=== PATIENT | female | born 2000 | race Caucasian/White ===

== ENCOUNTER 2023-06-01 11:52 | Emergency (ER) | payer BC, SELFPAY ==
[2023-06-01 12:05] VITALS: PULSE 96; RESP 22; TEMP 36.6; O2SAT 97; BMI 42.5
[2023-06-01 13:22] LABS: PCR FLU A Negative PCR FLU A (Negative); PCR FLU B Negative PCR FLU B (Negative); PCR RSV Negative PCR RSV (Negative)
--- NOTE | 2023-06-01 13:33 | ED_ITS ---
HPI - General Adult General Chief complaint: Cough Stated complaint: cough, coughed up blood Time Seen by Provider: 06/01/23 13:09 History of Present Illness HPI narrative: This 22-year-old female comes in reporting a cough over the past week or so. She comes in today because there was some specks of blood mixed in with the sputum when she cough today. She is about 18 weeks . She does not report any fevers. She does not have any shortness of breath. Her visit here today is simply because of some specks of blood in the sputum. Related Data Home Medications Medication Instructions Recorded Confirmed aspirin 81 mg tablet,delayed 81 mg PO DAILY 06/01/23 06/01/23 release folic acid 1 mg tablet 1 mg PO DAILY 06/01/23 06/01/23 levothyroxine 100 mcg tablet 100 mcg PO QAM 06/01/23 06/01/23 (Euthyrox) Previous Rx's Medication Instructions Recorded acetaminophen 300 mg-codeine 30 mg 1 tab PO Q6H PRN pain #15 tabs 06/01/23 tablet Allergies Allergy/AdvReac Type Severity Reaction Status Date / Time No Known Drug Allergies Allergy Verified 06/01/23 12:03 Review of Systems 2 Status of ROS: Reports: 10 or more systems reviewed and unremarkable except as noted in History and below Narrative: Constitutional: No fevers, no weight gain or loss. Eyes: No discharge. No vision changes. HENT: No congestion, no sore throat, no ear pain. Cardiovascular: No chest pain, no palpitations. Respiratory: No shortness of breath, no wheezes. She reports a productive cough. Gastrointestinal: No abdominal pain, no vomiting, no diarrhea. Genitourinary: No dysuria, no hematuria. Musculoskeletal: Normal range of motion. Skin: No rashes, no pruritis. Neurological: No dizziness, weakness, sensory change, speech change. Endo/Heme/Allergies: No bruising or bleeding. No polydipsia. Pysch: no suicidality, no anxiety, no insomnia. All other systems reviewed and are negative. PFSH PFSH Social History Smoking Status: Never smoker Non-prescribed substance use: denies use Exam Narrative: Exam Narrative: Constitutional: Well-developed, well-nourished, no acute distress. HEENT: Normocephalic, atraumatic. Neck: Normal range of motion. Nontender. Supple. Heart: Regular. No murmurs. Normal rate. Intact distal pulses. Lungs: Clear to auscultation. No chest discomfort. No wheezes, rhonchi, or rales. Abdomen: Normal bowel sounds. Nontender. No rebound tenderness. Gravid. Genitalia: Deferred. Back: No midline tenderness. Normal range of motion. Extremities: Normal range of motion. No injury. Skin: Intact. No rash. Warm. No erythema or pallor. Neurologic: No altered sensation. No weakness. Alert and oriented. Psychiatric: No suicidality. No anxiety or depression. No insomnia. Nursing notes and vitals signs are reviewed. Const: Vital Signs, click to edit/add: Vital Signs - 24 hr 06/01/23 12:05 Temperature 97.8 F Pulse Rate [Pulse Oximeter] 96 Respiratory Rate 22 Pulse Oximetry 97 Oxygen Delivery Me thod Room Air Course Vital Signs Vital signs: Initial Vital Signs Temperature 97.8 F 06/01/23 12:05 Temperature Source Temporal Artery Scan 06/01/23 12:05 Pulse Rate 96 06/01/23 12:05 Pulse Rhythm Regular 06/01/23 12:05 Respiratory Rate 22 06/01/23 12:05 Pulse Oximetry 97 06/01/23 12:05 Oxygen Delivery Method Room Air 06/01/23 12:05 Vital Signs Temperature 97.8 F 06/01/23 12:05 Pulse Rate 96 06/01/23 12:05 Respiratory Rate 22 06/01/23 12:05 Pulse Oximetry 97 06/01/23 12:05 Oxygen Delivery Method Room Air 06/01/23 12:05 Temperature 97.8 F 06/01/23 12:05 Pulse Rate 96 06/01/23 12:05 Respiratory Rate 22 06/01/23 12:05 Pulse Oximetry 97 06/01/23 12:05 Oxygen Delivery Method Room Air 06/01/23 12:05 Medical Decision Making MDM Narrative Medical decision making narrative: This patient is and comes in with a productive cough that had some blood in the sputum today. She arrives with normal vital signs. Her exam is also normal. I did discuss x-ray imaging and lab options which the patient declined in a process of shared decision making. The blood in her sputum is not worrisome. I did indicate signs or symptoms that would indicate a need for return and re-evaluation. She did receive a prescription for some tablets of Tylenol 3 to be used as needed for additional cough control. Discharge Plan Discharge Clinical Impression: Acute upper respiratory infection Patient Disposition: Home, Self-Care Condition: Stable Additional Instructions: Continue current plans. Use medication as needed and directed for additional cough control. Return if worsening. Prescriptions: New acetaminophen-codeine 300-30 mg tablet 1 tab PO Q6H PRN (Reason: pain) Qty: 15 0RF No Action aspirin 81 mg tablet,delayed release (DR/EC) 81 mg PO DAILY levothyroxine [Euthyrox] 100 mcg tablet 100 mcg PO QAM folic acid 1 mg tablet 1 mg PO DAILY Stand Alone Forms: [employer] Info Instructions
[2023-06-01 13:41] LABS: SARS PCR* Negative SARS-CoV-2 (Negative)
== END 2023-06-01 14:03 | disposition home or self-care (01) ==
LOC: ED 13:57
PROVIDERS: Emergency Provider Emergency Medicine Emergency Medical Services; PCP Family Medicine
DX: J06.9 Acute upper respiratory infection, unspecified (principal)
CPT/HCPCS: 87631; 99283; 99284

== ENCOUNTER 2023-10-12 12:31 | Inpatient (IN) | payer BC, SELFPAY ==
[2023-10-12] VITALS (27 sets, daily range): BP systolic 73–110; BP diastolic 44–73; PULSE 73–104; RESP 14–20; TEMP 36.6–37.3; O2SAT 90–100; BMI 43.8
--- NOTE | 2023-10-12 10:18 | US_ITS ---
Patient: YONIS CR Facility:?[facility] Patient ID:?[id number] Site Patient ID:?[id number]. Site :?[id number] Study:?US-OB Pelvis OB BPP-10/12/2023 10:59:37 AM Ordering Physician:?DENYS SANDHU M.D. Final Report: INDICATION: Right lower quadrant pain. COMPARISON: 10/04/2023 TECHNIQUE: Grayscale pelvic ultrasound via a transabdominal approach. FINDINGS: number: 1 Position: Cephalic. Placental Position: Posterior/right lateral. Amniotic fluid: DVP 1.2cm. heart rate: 152bpm. BPP Score: Fluid: 0 Breathin Movement: 2 Tone: 2 Total: 8 IMPRESSION: Abnormal BPP score (6/8) with no points given for abnormal amniotic fluid volume. Dictated by Eric Bruner MD @ 10/12/2023 11:15:13 AM ----- ADDENDUM ----- ADDENDUM: Discussed with Dr. SANDHU at 11:21 a.m. MANAGER ADULT Dictated by Eric Bruner MD @ Oct 12 2023 11:21AM Signed by:?Eric Bruner MD @10/12/2023 11:15:13 AM (Electronic Signature)
[2023-10-12 11:26] LABS: Amnisure Rom* Negative
--- NOTE | 2023-10-12 12:37 | PM.OBHPLI ---
OB - H&P: HPI Labor/Induction History of Present Illness Time Seen by Provider: 09:00 Date Seen: 10/12/23 Chief Complaint: The patient is a 23 year old 5 para 1031 at 36.6 weeks gestation by 7 week ultrasound (7 weeks off of LMP) who presented with RLQ pain for routine care. Chief complaint: Maternity : 5 Para: 1 Narrative: The patient is a 23 year old 5 para 1031 at 36.6 weeks gestation by 7 week ultrasound (7 weeks off of LMP) who presented with RLQ pain for routine care. Fortunately, incision from prior looks good, but patient has new onset oligohydramnios with SDP of 1.9 has been complicated by obesity, gestational diabetes (diet controlled), hypothyroidism. She has been on synthroid, baby asa. History of Present Dating criteria: based on 1st trimester US only care: good care Ultrasounds: normal 1st trimester US, normal mid trimester US (normal level 2 and echo with MPP) and abnormal US findings (new Oligohydramnios today with SDP of 1.9) complications: gestational diabetes Medical complications: none Labs Blood type: O (+) positive RPR/VDLR: nonreactive GBS status: negative HBsAG: negative Review of Systems Status of ROS: Reports: 10 or more systems reviewed and unremarkable except as noted in History and below GI: Reports: abdominal pain Meds Home Medications and Allergies Home Medications Medication Instructions Recorded Confirmed Type aspirin 81 mg tablet,delayed 81 mg PO DAILY 06/01/23 10/12/23 History release levothyroxine 100 mcg tablet 100 mcg PO QAM 06/01/23 10/12/23 History (Euthyrox) vits no.126-ferrous fum tab PO QDAY 08/31/23 08/31/23 History 28 mg iron-folic acid 800 mcg tablet (Classic ) Allergies Allergy/AdvReac Type Severity Reaction Status Date / Time No Known Drug Allergies Allergy Verified 08/31/23 13:27 OB - H&P: Exam Physical Exam: Vital signs: Temp Pulse Resp BP Pulse Ox 98.9 F 101 H 18 83/45 L 97 10/12/23 10:33 10/12/23 10:34 10/12/23 10:33 10/12/23 10:34 10/12/23 10:30 Constitutional: Constitutional: no acute distress (appears uncomfortable) Routine HEENT Exam: Head: Present atraumatic Routine Neck Exam: Neck: Present full ROM Routine Respiratory Exam: Respiratory: Present CTA bilaterally Routine Cardiovascular Exam: Cardiovascular: RRR, S1 and S2 Detailed Abdominal Exam: Comments: Gravid, tender in RLQ along incision Detailed Labor and Delivery Exam: Patient Gravid: Yes Routine Back/Spine/Pelvis Exam: Back/Spine: full ROM Routine Skin Exam: Present intact Routine Neurological Exam: Present alert and oriented X3 Routine Psychiatric Exam: Present normal affect OB - Problem Based A/P Additional Plan (1) : Problem details: 36w6d gestation. Status: Acute (2) Obesity: Status: Chronic (3) Hypothyroidism: Problem details: on synthroid Status: Chronic (4) Gestational diabetes mellitus: Problem details: diet controlled Status: Acute Plan: NPO until after . (5) Oligohydramnios: Problem details: New diagnosis today with SDP of 1.9. Amnisure negative Status: Acute Plan - I have discussed patient's care with Dr. Yani Major who is on for obstetric team today. She agrees with new onset oligohydramnios that patient should be delivered today. Plan is to do delivery at 4pm given she ate breakfast and baby is otherwise doing well. Delivery/Labor/Induction Plan Plan: Section (repeat planned this afternoon)
--- NOTE | 2023-10-12 12:45 | P.OBCN_ITS ---
OB - CN: HPI Date of Consult Time Seen by Provider: 12:00 Date Seen: 10/12/23 Patient: Bryon Patient Consult date: 10/12/23 Requesting Physician: Yani Major MD Primary Care Provider: Yesica Silver MD Consult Narrative Narrative: Alexandria is a 23 year old G 5 P 1041 at 36w6d gestation that was admitted to the Center on 10/12/23 for oligohydramnios and possible repeat low-transverse . I was asked to see the patient by Dr. Yesica Silver for possible repeat low-transverse section today due to new onset oligohydramnios. History of Present Dating criteria: based on LMP care: good care Ultrasounds: abnormal US findings Abnormal ultrasound findings: BPP today: Showed a single deepest pocket of 1.2 cm with a 4 quadrant EDDY of 4.2 cm. BPP plus NST 8/10. Two points off for maximum vertical pocket of less than 2 cm. This is new onset oligohydramnios of unknown etiology. She had a BPP last week that showed a maximum vertical pocket of 4.6 cm. complications: gestational diabetes and other (Morbid obesity.) History History 5 Elective abortions Para 1 Spontaneous abortions Hx # Term Pregnancies Ectopic pregnancies Hx # Pregnancies Multiple births Number of Living Children 1 Labs Blood type: O (+) positive RPR/VDLR: nonreactive GBS status: negative HBsAG: negative PFSH PFSH Surgical History (Updated 08/29/23 @ 15:42 by Lucero Villegas) History of cholecystectomy (12/28/21) ?Z90.49 - Acquired absence of other specified parts of digestive tract (ICD- 10) Status post primary low transverse section (10/28/21) ?Z98.891 - History of uterine scar from previous surgery (ICD-10) Social History What is your current living situation?: I presently have a place to live Problems where you live: no known problems In the past 12 months, utilities in danger of being shut off: no In past 12 months, lack of transportation kept you from medical appts, meetings, work, or getting things needed for daily living: no In the past 12 mos, have been you worried that your food would run out before you had money to buy more?: never true In the past 12 mos, the food you bought just didn't last and you didn't have money to buy more?: never true Smoking Status: Never smoker Non-prescribed substance use: denies use How often does anyone, including family, friends and others, physically hurt you : never How often does anyone, including family, friends and others, insult or talk down to you: never How often does anyone, including family, friends and others, threaten you with harm: never How often does anyone, including family, friends and others, scream or curse at you: never Meds Home Medications and Allergies Home Medications Medication Instructions Recorded Confirmed Type aspirin 81 mg tablet,delayed 81 mg PO DAILY 06/01/23 10/12/23 History release levothyroxine 100 mcg tablet 100 mcg PO QAM 06/01/23 10/12/23 History (Euthyrox) vits no.126-ferrous fum tab PO QDAY 08/31/23 08/31/23 History 28 mg iron-folic acid 800 mcg tablet (Classic ) Allergies Allergy/AdvReac Type Severity Reaction Status Date / Time No Known Drug Allergies Allergy Verified 08/31/23 13:27 OB - H&P: Exam Physical Exam: Vital signs: Temp Pulse Resp BP Pulse Ox 98.9 F 101 H 18 83/45 L 97 10/12/23 10:33 10/12/23 10:34 10/12/23 10:33 10/12/23 10:34 10/12/23 10:30 Narrative: GENERAL APPEARANCE: Pleasant, , well-groomed woman in no acute distress. VITAL SIGNS: as noted in nursing notes HEAD: Normocephalic, atraumatic. THYROID: no masses, nodularity, tenderness or enlargement. LUNGS: Clear to auscultation bilaterally without wheezes, rales or rhonchi. HEART: Regular rate and rhythm with normal S1 and S2. No gallop, rub or murmur. ABDOMEN: Gravid. Soft, nontender, nondistended, with normal bowels sounds throughout. EFM: Baseline 140s, accelerations: Present, decelerations: Absent. Reactive. Category 1. TOCO: No contractions. PRESENTATION: Vertex on ultrasound during BPP SVE: Deferred EXTREMITIES: No cyanosis, clubbing, or edema. No varicosities. NEUROLOGIC: Normal gait and balance. Normal deep tendon reflexes at bilateral patella 2+/2, equal without clonus. PSYCHIATRIC: alert and oriented x3. Normal speech pattern, eye contact and affec t. SKIN: Warm, dry, and well perfused. Good turgor. No lesions, nodules or rashes. OB - CN: A/P Assessment and Plan (1) : Problem details: 36w6d gestation. Status: Acute (2) Obesity: Status: Chronic (3) Hypothyroidism: Problem details: on synthroid Status: Chronic (4) Gestational diabetes mellitus: Problem details: diet controlled Status: Acute (5) Oligohydramnios: Start date: 10/12/23 Problem details: New diagnosis today with SDP of 1.2cm. Amnisure negative Status: Acute Assessment and Plan: 1. Recommended repeat low-transverse section today due to new onset significant oligohydramnios. 2. Consent form reviewed and signed for repeat low-transverse section. 3. The patient will be NPO for 8 hours at 4:00 p.m. today so planning on doing the then. Total Time Spent Total time spent: 45 min.
[2023-10-12 13:11] LABS: Hemoglobin* 10.3 gm/dL (12.0-16.0)
[2023-10-12] MEDS: LACTATED RINGERS 1000 ML 1,000 ML 500 ML IV (13:13)
[2023-10-12 13:34] LABS: Basophils Absolute Auto 0.03 K/uL (0.00-0.30); Basophils Percent Auto 0.3 % (0.0-3.0); Eosinophils Absolute Auto 0.18 K/uL (0.00-0.50); Eosinophils Percent Auto 1.9 % (0.0-7.0); Hematocrit 31.8 % (33.0-51.0); Hemoglobin* 10.5 gm/dL (12.0-16.0); Immature Granulocytes Abs Auto 0.12 K/uL (0.00-0.30); Immature Granulocytes Pct Auto 1.2 %; Lymphocytes Absolute Auto 2.52 K/uL (0.90-2.90); Lymphocytes Percent Auto 26.1 % (20-44); Mean Corpuscular HGB Conc 33 gm/dL (32-36); Mean Corpuscular Hemoglobin 26 pg (26-34); Mean Corpuscular Volume 77 fL (80-100); Monocytes Percent Auto 7.6 % (0.0-11.0); Neutrophils Absolute Auto 6.08 K/uL (1.7-7.0); Neutrophils Percent Auto 62.9 % (42.0-72.0); Platelet Count* 330 K/uL (140-440); RDW Coefficient of Variation % 13.6 % (11.5-15.5); Red Blood Count 4.11 m/uL (4.00-5.20); White Blood Count* 9.66 K/uL (4.50-11.00)
[2023-10-12 13:41] LABS: Slide Review Reflex No
--- NOTE | 2023-10-12 15:08 | PM.PROC ---
Procedure Note Time Seen by Provider: 17:50 Date Seen: 10/12/23 Date of procedure: 10/12/23 Will [facility] bill your pro fee for this procedure?: Yes Procedure: Preoperative diagnosis: 23-year-old 5 para 1011 at 36 and 6/7 weeks admitted for a scheduled repeat low transverse section due to new onset oligohydramnios with a maximum vertical call pocket of 1.9 cm. in a patient with gestational diabetes. Postoperative diagnosis: Same Procedure: Repeat low-transverse section. Anesthesia: Spinal Surgeon: Yani Major MD Pierogi Maker: Razia Torrez MD Quantitative blood loss: 651 mL IVF: 2300 mL UOP: 100 mL Drain(s): Martin to gravity. Specimen: Placenta to pathology. Findings: A live female was delivered from the direct OA position at 1703. Apgars were 7 at 1 min and 9 at 5 min., respectively. weight: 7 lb 5 oz. Nuchal cord(s): No. The placenta was delivered spontaneously and complete at 1705. Amniotic fluid: Clear. Normal uterus, fallopian tubes and ovaries were noted. Other findings: Adhesions of the omentum to the anterior abdominal wall in the midline. Procedure: Alexandria was taken to the OR where spinal anesthetic was found be adequate. A Martin catheter was placed. The patient was then placed in the dorsal supine position with a leftward tilt. She was then prepped and draped in a normal sterile manner. A Pfannenstiel skin incision was made and carried through sharply to the underlying layer of fascia. Fascia was incised in the midline and this incision carried laterally with Pina scissors. The superior aspect of fascial incision was grasped with Maggie clamps, tented up, and the rectus muscles dissected off with a combination of blunt and sharp dissection. The inferior aspect of the fascial incision was grasped with Maggie clamps, tented up and again the rectus muscles dissected off with a combination of blunt and sharp dissection. The rectus muscles were in the midline. The peritoneum was entered bluntly. This opening was extended bluntly. There was a 5 cm thick omental adhesion to the anterior abdominal wall in the midline that was crossclamped with Mariella clamps divided and suture ligated with 2-0 Vicryl. An Benitez-O self-retaining retractor was placed. A bladder flap was created due to thin adhesions of the bladder reflection to the anterior lower uterine segment. Uterus was incised in a low transverse manner in the midline. This incision carried laterally with blunt pressure on the inferior and superior aspects of the uterine incision. The amniotic sac was ruptured. The infant's head and body were delivered atraumatically. The was shown to the patient and her support person. The umbilical was clamped and cut immediately/after a 30 second delay. The infant was then handed to waiting pediatric and nursing staff. The placenta was delivered spontaneously. The uterus was cleared of clots and debris. The uterine incision was re-approximated with the uterus in vivo. The 1st layer using 0-Vicryl in a running, locked manner. The 2nd layer using 0-Monocryl in a running, vertical, imbricating layer. Additional sutures needed for hemostasis: Yes 1 figure of 8 suture using 2-0 chromic. . Excellent hemostasis was confirmed. The Benitez retractor was removed. The rectus muscles were not reapproximated. The rectus muscles were then closely inspected to verify hemostasis. Hemostasis was obtained with bipolar cautery. The fascia was then reapproximated using 0-Maxon loop in a running manner. The subcutaneous tissue was then irrigated with saline and hemostasis obtained with bipolar cautery. The subcutaneous tissue was reapproximated using 3-0 plain gut in a running manner. The skin was reapproximated using 4-0 Monocryl in a running subcuticular manner. A silver-containing dressing was placed. The patient tolerated this procedure well. Sponge, lap and instrument counts were correct x2 active to the procedure. Patient was taken to the recovery area in stable condition. The patient received 3 g of IV Ancef prior to skin incision. Pathology: specimen obtained, sent to pathology
[2023-10-12] MEDS: CEFAZOLIN 1 GM inj 3 GM IVP (16:35)
[2023-10-12] MEDS: LACTATED RINGERS 1000 ML 1,000 ML 125 ML IV ×3 (16:42→23:47)
--- NOTE | 2023-10-12 16:53 | P.ANES_ITS ---
Anesthesia Charges Start Date/Time Anesthesia Start Date: 10/12/23 Anesthesia Start Time: 16:15 Stop Date/Time Anesthesia Stop Date: 10/12/23 Anesthesia Stop Time: 18:01 Summary Emergency: SANDBLAST [facility]VER
--- NOTE | 2023-10-12 16:54 | W.PM.NB ---
Nerve Block Nerve Block Time Seen by Provider: 17:45 Date Seen: 10/12/23 Type of block requested by surgeon for post-operative analgesia: TAP Side: bilateral Time out performed: Yes Verification of patient name: Yes Verification of date of : Yes Name of person performing procedure: Shavon Brent Continuous monitoring Was continuous monitoring of O2 sat, B/P, air sampling and monitoring, recorded every 15 minutes?: Yes Procedure Checklist: sterile prep, needles and gloves Ultrasound guided. Images saved: Yes Medications given in 5ml increments after negative aspiration: Marcaine %: 0.25 mL: 30 Needle gauge: 21 and Exparel mL: 10 Needle gauge: 21 Patient tolerated procedure well: Yes Block Charges Block Charge (with Pro Fee): TAP Bilateral Use of Ultrasound Machine for Block: Yes- US Guidance/pain block
[2023-10-12] MEDS: KETOROLAC 30 MG/ML inj IVP (23:02)
[2023-10-13] VITALS (9 sets, daily range): BP systolic 57–107; BP diastolic 56–75; PULSE 70–88; RESP 16–20; TEMP 36.4–36.9; O2SAT 95–98
[2023-10-13] MEDS: diphenhydrAMINE 50 MG/ML inj 12.5 MG IVP ×2 (01:10→07:47)
[2023-10-13] MEDS: KETOROLAC 30 MG/ML inj IVP ×3 (04:42→17:53)
[2023-10-13 06:41] LABS: Hemoglobin* 9.4 gm/dL (12.0-16.0)
--- NOTE | 2023-10-13 09:22 | PM.OBPNVD1 ---
OB - PN:Subj Subjective Time Seen by Provider: 08:25 Date Seen: 10/13/23 Narrative: Ms. Nichols is a 23yo seen on POD1 from repeat at 36w6d for oligohydramnios. was complicated by gestational diabetes A1, hypothyroidism and obesity. Alexandria is feeling well since surgery, no acute concerns. She notes her pain in generally well controlled, utilizing tylenol and toradol with oxycodone PRN (none overnight). She is tolerating PO intake without nausea/vomiting. Lochia is described as minimal. She has yet to ambulate, SCDs on. Hawley catheter in place, passing gas. Baby is bottle feeding, plans to start pumping today as well. OB - PN: Obj Exam Physical Exam: Vital signs: Temp Pulse Resp BP Pulse Ox O2 Del Method 98.4 F 75 16 102/65 96 Room Air 10/13/23 07:39 10/13/23 07:39 10/13/23 07:44 10/13/23 07:39 10/13/23 07:39 10/13/23 07:39 Narrative: General: Alert and oriented, in no acute distress Psych: Appropriate mood and affect Abdomen: Soft, nondistended. Nontender to palpation throughout, no rebound or guarding. Fundus palpated at umbilicus. Incision is covered, dressing is clean/dry aside from 1 tiny focus of serosanguineous drainage on the right margin. Urinary Catheter Management: Urethral: Cath placed during this visit: yes Urethral indwelling: Yes Reason for continuing: prolonged immobilization Insertion date: 10/12/23 Insertion time: 16:44 OB - PN: Obj Data Labs Labs: Laboratory Results - last 24 hr 10/12/23 10/12/23 10/12/23 11:08 13:04 13:04 WBC 9.66 RBC 4.11 Hgb 10.3 L 10.5 L Hct 31.8 L MCV 77 L MCH 26 MCHC 33 RDW Coeff of Earle 13.6 Plt Count 330 Neut % (Auto) 62.9 Lymph % (Auto) 26.1 [place] % (Auto) 7.6 Eos % (Auto) 1.9 Baso % (Auto) 0.3 Neut # (Auto) 6.08 Lymph # (Auto) 2.52 [place] # (Auto) 0.70 Eos # (Auto) 0.18 Baso # (Auto) 0.03 Abs Immat Gran (auto) 0.12 Imm/Tot Granulo (auto) 1.2 Membrane Rupture Negative Blood Type O Positive Antibody Screen NEGATIVE 10/13/23 06:14 WBC RBC Hgb 9.4 L Hct MCV MCH MCHC RDW Coeff of Earle Plt Count Neut % (Auto) Lymph % (Auto) [place] % (Auto) Eos % (Auto) Baso % (Auto) Neut # (Auto) Lymph # (Auto) [place] # (Auto) Eos # (Auto) Baso # (Auto) Abs Immat Gran (auto) Imm/Tot Granulo (auto) Membrane Rupture Blood Type Antibody Screen OB - PN: A/P Delivery Assessment and Plan (1) : Problem details: 36w6d gestation. Status: Acute (2) Obesity: Status: Chronic (3) Hypothyroidism: Problem details: on synthroid Status: Chronic (4) Gestational diabetes mellitus: Problem details: diet controlled Status: Acute (5) Oligohydramnios: Problem details: New diagnosis on 10/12/23 with SDP of 1.9cm, EDDY 4.3cm. Amnisure negative. Status: Acute Plan Ms. Nichols is a 23yo seen on POD1 from repeat . was complicated by GDMA1, obesity and hypothyroidism. She has no acute post-op concerns and is working on milestones. She has yet to ambulate, encouraged patient and RN to work on this today. Once ambulating, plan to remove hawley catheter. Denies dizziness/lightheadedness, post-op Hgb of 9.4 from 10.5. - Continue to work on post-op milestones (ambulation, voiding) - Bottle and pumping for feeds - Pain control with tylenol, NSAIDs and oxycodone PRN - Lovenox for VTE ppx ongoing
[2023-10-13] MEDS: ENOXAPARIN 40 MG/0.4 ML INJ SUBCUT (09:50)
[2023-10-13] MEDS: ACETAMINOPHEN 500 MG TABLET 1000 MG PO (09:51)
[2023-10-13 13:25] LABS: Rapid Plasma Reagin (RPR) Non Reactive (Non Reactive)
[2023-10-13] MEDS: OXYCODONE 5 MG TABLET PO (14:37)
[2023-10-14] MEDS: KETOROLAC 30 MG/ML inj IVP (00:26)
[2023-10-14] MEDS: DOCUSATE SODIUM 100 MG CAPSULE PO (00:32)
[2023-10-14] MEDS: IBUPROFEN 600 MG TABLET PO ×2 (04:06→10:35)
[2023-10-14] MEDS: OXYCODONE 5 MG TABLET PO ×2 (04:06→13:22)
[2023-10-14 07:21] LABS: Glucose Fasting 66 mg/dl (70-95)
[2023-10-14 07:33] VITALS: BP 99/67; PULSE 71; RESP 16; TEMP 36.5; O2SAT 97
[2023-10-14] MEDS: ACETAMINOPHEN 500 MG TABLET 1000 MG PO (07:38)
--- NOTE | 2023-10-14 09:04 | P.DS_ITS ---
DS: Providers Provider Time Seen by Provider: 09:04 Date Seen: 10/14/23 Date of admission: 10/12/23 12:31 Primary care physician: Yesica Silver MD Admitting Clinician: Yani Major MD Attending Physician on discharge: Maxi Pryor MD Exam Narrative: Exam Narrative: General: Alert and oriented, in no acute distress Psych: Appropriate mood and affect Abdomen: Soft, nondistended, nontender to palpation. Uterus palpates 2 below umbilicus, firm. Incision is covered with silver dressing, tiny focus of serosanguineous output is stable from previous exam. Const: Vital Signs, click to edit/add: Vital Signs - 24 hr 10/13/23 11:52 10/13/23 11:58 10/13/23 18:15 Temperature 98.4 F 97.9 F Pulse Rate [Pulse Oximeter] 88 78 Respiratory Rate 16 16 20 Blood Pressure [Ri ght Arm] 103/69 107/75 Pulse Oximetry 95 Oxygen Delivery Me thod Room Air 10/13/23 23:03 10/14/23 07:33 Temperature 97.5 F L 97.7 F Pulse Rate [Pulse Oximeter] 81 71 Respiratory Rate 18 16 Blood Pressure [Ri ght Arm] 86/59 L 99/67 Pulse Oximetry 95 97 Oxygen Delivery Me thod Room Air Room Air OB - DS: Summary Hospital Course Hospital Course: The patient is a 23 year old G 5 P 2 at 36 weeks gestation that was admitted to the Center on 10/12/23 for repeat delivery. She had an uncomplicated delivery. She delivered a viable female infant. She is bottle and pumping for feeding. the patient has done well. Brandie is feeling well this morning, no acute concerns. She notes her pain is well controlled, on ibuprofen, Tylenol and oxycodone as needed. She ambulates without difficulty, without to shower this morning. Tolerating p.o. intake without nausea or vomiting. Passing flatus, no bowel movement yet. Voiding spontaneously. Lochia is minimal. No lower extremity concerns. Peripartum Data Procedures: Procedures Operation Date: 10/12/23 16:15 Actual Procedure Side Surgeon p Repeat Low Transverse Section Yani Major MD Gender: Female Time Spent with Patient Time attestation: Total time spent providing and/or coordinating discharge services: Discharge Plan Discharge Disposition: Home, Self-Care Date of Admission: 10/12/23 12:31 Primary Care Provider: Yesica Silver Condition: Stable Anticipated Discharge Date/Time: 10/14/23 09:06 Discharge Medications: New oxycodone 5 mg Tablet 5 mg PO Q4H PRN (Reason: Pain) 7 Days Qty: 15 0RF Continued Classic 28 mg iron- 800 mcg tablet 1 tab PO QDAY levothyroxine [Euthyrox] 100 mcg tablet 100 mcg PO QAM Discontinued aspirin 81 mg tablet,delayed release (DR/EC) 81 mg PO DAILY Discharge Orders: Discharge Order (Routine); Ordered 10/14/23 Ordered By: Maria Dolores Pryor Patient Education: OB /Bottle Feeding Follow Up Appointments: Yesica Silver MD [Primary Care Provider] - Forms: Libretto Info Instructions Discharge Comments: [facility] 2 week incision check, 6 week visit with provider
[2023-10-14 09:26] LABS: Glucose 2 Hour 172 mg/dl (70-155)
[2023-10-14] MEDS: ENOXAPARIN 40 MG/0.4 ML INJ SUBCUT (10:35)
== END 2023-10-14 14:00 | disposition home or self-care (01) | DRG 540 ==
LOC: OB OUT 12:31 → OB 12:31
PROVIDERS: Admitting Provider Obstetrics & Gynecology; PCP Family Medicine; Visit Provider Obstetrics & Gynecology
PROC: 10D00Z1 Extraction of Products of Conception, Low, Open Approach (ICD-10-PCS; CPT 59514; principal; 2023-10-12 16:00)
DX: O24.420 Gestational diabetes mellitus in childbirth, diet controlled (principal); Z3A.36 36 weeks gestation of pregnancy; Z37.0 Single live birth; G89.18 Other acute postprocedural pain; O99.214 Obesity complicating childbirth; O99.284 Endocrine, nutritional and metabolic diseases complicating childbirth; K66.0 Peritoneal adhesions (postprocedural) (postinfection)
CPT/HCPCS: 01961; 36415; 64488; 76819; 76942; 82947; 82950; 84112; 85018; 85025; 86592; 86850; 86900; 86901; 88307; 99140; A9270; C9290; J0665; J0690; J1200; J1650; J1885; J2250; J2274; J2371; J2405; J2590; J3010; J7120